=== PATIENT | male | born 1980 | race African-American/Black ===

== ENCOUNTER 2017-01-16 14:30 | Emergency (ER) | payer MEDICAID ==
[~2017-01-16] VITALS: Ht 172.7 cm; Wt 90.0 kg
[2017-01-16 14:33] VITALS: BP 122/75
== END 2017-01-16 18:03 | disposition left against medical advice (07) ==
LOC: ER 14:39
DX: Z53.21 Procedure and treatment not carried out due to patient leaving prior to being seen by health care provider (principal)

== ENCOUNTER 2023-02-11 21:53 | Emergency (ER) | payer MEDICAID ==
[~2023-02-11] VITALS: Ht 188 cm; Wt 113.0 kg
[2023-02-11 21:55] VITALS: BP 147/68
== END 2023-02-12 02:27 | disposition left against medical advice (07) ==
LOC: ER 21:53
DX: R51.9 Headache, unspecified (principal); Z53.21 Procedure and treatment not carried out due to patient leaving prior to being seen by health care provider
CPT/HCPCS: 99281; Z7610